=== PATIENT | male | born 1995 | race African-American/Black ===

== ENCOUNTER 2020-11-17 02:27 | Emergency (ER) | payer MEDICAID ==
[~2020-11-17] VITALS: Ht 180.3 cm; Wt 80.0 kg
[2020-11-17] MEDS ORDERED: ACETAMINOPHEN 325MG TABLET PO ONE (04:15)
[2020-11-17] MEDS ORDERED: IBUPROFEN 400MG TABLET PO ONE (04:15)
[2020-11-17 06:00] VITALS: BP 140/82
== END 2020-11-17 07:15 | disposition home or self-care (01) ==
LOC: ER 03:13
DX: G43.909 Migraine, unspecified, not intractable, without status migrainosus (principal)
CPT/HCPCS: 99283